=== PATIENT | male | born 1995 | race Caucasian/White ===

== ENCOUNTER 2019-01-03 15:28 | Emergency (ER) | payer MEDICAID ==
[~2019-01-03] VITALS: Ht 175.3 cm; Wt 76.0 kg
[2019-01-03] MEDS ORDERED: IBUP-2028 PO (15:52)
[2019-01-03 17:29] VITALS: BP 165/100
[2019-01-03] MEDS ORDERED: IBUPROFEN 600MG TABLET PO ONE (17:30)
== END 2019-01-03 17:41 | disposition home or self-care (01) ==
LOC: ER 15:28
DX: H92.03 Otalgia, bilateral (principal); J02.9 Acute pharyngitis, unspecified; Z88.0 Allergy status to penicillin; Z79.899 Other long term (current) drug therapy
CPT/HCPCS: 99282